=== PATIENT | male | born 1950 | race African-American/Black ===

== ENCOUNTER 2017-11-01 07:30 | Emergency (ER) | payer MEDICARE, OTHER ==
[~2017-11-01] VITALS: Ht 170.2 cm; Wt 76.0 kg
[~2017-11-01 07:30] MED LIST: ASPI81 PO; ATOR80TA41 PO; DOK100TA PO; DORZ1SOL2 EACH EYE; ERGO50000 PO; INDO75CA PO; LATA0.00 EACH EYE; LOSA50TA PO; LUTE1CAP5 PO; METO25 PO; OMEP20TA PO; VITATAB11 PO
[2017-11-01 07:32] VITALS: BP 170/78; PULSE 65; RESP 18; TEMP 97.6; O2SAT 99
[2017-11-01] MEDS ORDERED: ATOR80TA45 PO (07:46)
[2017-11-01] MEDS ORDERED: METO25TA3 PO (07:46)
--- NOTE | 2017-11-01 07:59 | PD ---
HPI Chief Complaint: Numbness/Tingling Time Seen by Provider: 07:53 Travel History International Travel<30 days: No Contact w/Intl Traveler<30days: No Traveled to known affect area: No History of Present Illness HPI 67-year-old male patient with history of sciatica, previous ME, DVT, presents to the ER today because he states he woke up this morning and noticed that his left foot was dropping, he cannot flex it the way he used to and he has some tingling in it. He denies any leg weakness, difficulty talking, or other focal neurological deficits. He denies any chest pains, abdominal pains, headaches, or other symptoms. He denies any injuries. He states that he was fine last night. Modifying Factors: None Associated Signs & Symptoms: Left foot drop Risk Factors: None PFSH Past Medical History Arthritis: Yes (GOUT) Heart Rhythm Problems: No Cardiac Catheterization: Yes (and aortic aneurysm repair) Cardiovascular Problems: Yes High Cholesterol: Yes Congestive Heart Failure: No Coronary Artery Disease: Yes Diabetes: No Diminished Hearing: No Deep Vein Thrombosis: Yes Gout: Yes Hypertension: Yes Myocardial Infarction: Yes Renal Failure: Yes (STATES HIS DR SAID HE HAS KIDNEY DISEASE) Sleep Apnea: Yes (cpap) Past Surgical History Coronary Artery Bypass Graft: No Family History Family Myocardial Infarction: Yes (father in 60-70's of [place]) Social History Alcohol Use: No Tobacco Use: No Substance Use: No (hX USING MARIJUANA-) Allergies-Medications (Allergen,Severity, Reaction): Coded Allergies: Penicillins (Verified Allergy, Severe, hives, 11/01/17) Reported Meds & Prescriptions Reported Meds & Active Scripts Active Reported Atorvastatin (Atorvastatin Calcium) 80 Mg Tab 80 Mg PO HS Metoprolol Tartrate 25 Mg Tab Unknown Dose PO BID Review of Systems Except as stated in HPI: all other systems reviewed are Neg Physical Exam Narrative GENERAL: Well-developed elderly -[place] male patient currently in mild distress. Awake and oriented x3. SKIN: Focused skin assessment warm/dry. HEAD: Atraumatic. Normocephalic. EYES: Pupils equal and round. No scleral icterus. No injection or drainage. ENT: No nasal bleeding or discharge. Mucous membranes pink and moist. NECK: Trachea midline. No JVD. CARDIOVASCULAR: Regular rate and rhythm. No murmur appreciated. RESPIRATORY: No accessory muscle use. Clear to auscultation. Breath sounds equal bilaterally. GASTROINTESTINAL: Abdomen soft, non-tender, nondistended. Hepatic and splenic margins not palpable. MUSCULOSKELETAL: No obvious deformities. No clubbing. No cyanosis. No edema. EXTREMITIES: No clubbing, cyanosis, or edema. No joint tenderness, effusion, or edema noted. No calf tenderness. Neurovascularly intact, good pedal pulses. NEUROLOGICAL: Awake and alert. No obvious cranial nerve deficits. Motor grossly within normal limits, no pronator drift, but there is a notable left foot weakness on flexion, foot drop. Normal speech. PSYCHIATRIC: Appropriate mood and affect; insight and judgment normal. Data Data Last Documented VS Vital Signs Date Time Temp Pulse Resp B/P (MAP) Pulse Ox O2 Delivery O2 Flow Rate FiO2 11/01/17 09:18 97.8 54 17 157/73 (101) 99 Room Air Orders Orders Complete Blood Count With Diff (11/01/17 07:53) Basic Metabolic Panel (Bmp) (11/01/17 07:53) Creatine Kinase (Cpk) (11/01/17 07:53) Ct Brain W/O Iv Contrast(Rout) (11/01/17 07:53) Ct Lumb Spine W/O Contrast (11/01/17 07:53) Mri L Spine W/O Contrast (11/01/17 09:04) Labs Laboratory Tests Test 11/01/17 07:50 White Blood Count 3.5 TH/MM3 Red Blood Count 4.08 MIL/MM3 Hemoglobin 12.3 GM/DL Hematocrit 36.2 % Mean Corpuscular Volume 88.9 FL Mean Corpuscular Hemoglobin 30.3 PG Mean Corpuscular Hemoglobin Concent 34.0 % Red Cell Distribution Width 14.6 % Platelet Count 160 TH/MM3 Mean Platelet Volume 8.5 FL Neutrophils (%) (Auto) 60.7 % Lymphocytes (%) (Auto) 25.0 % Monocytes (%) (Auto) 12.3 % Eosinophils (%) (Auto) 1.6 % Basophils (%) (Auto) 0.4 % Neutrophils # (Auto) 2.1 TH/MM3 Lymphocytes # (Auto) 0.9 TH/MM3 Monocytes # (Auto) 0.4 TH/MM3 Eosinophils # (Auto) 0.1 TH/MM3 Basophils # (Auto) 0.0 TH/MM3 CBC Comment DIFF FINAL Differential Comment Blood Urea Nitrogen 14 MG/DL Creatinine 1.24 MG/DL Random Glucose 114 MG/DL Calcium Level 9.1 MG/DL Sodium Level 139 MEQ/L Potassium Level 3.6 MEQ/L Chloride Level 105 MEQ/L Carbon Dioxide Level 25.2 MEQ/L Anion Gap 9 MEQ/L Estimat Glomerular Filtration Rate 71 ML/MIN Total Creatine Kinase 105 U/L MDM Medical Decision Making Medical Screen Exam Complete: Yes Emergency Medical Condition: Yes Medical Record Reviewed: Yes Interpretation(s) Laboratory Tests Test 11/01/17 07:50 White Blood Count 3.5 TH/MM3 (4.0-11.0) Red Blood Count 4.08 MIL/MM3 (4.50-5.90) Hemoglobin 12.3 GM/DL (13.0-17.0) Hematocrit 36.2 % (39.0-51.0) Monocytes (%) (Auto) 12.3 % (0.0-8.0) Lymphocytes # (Auto) 0.9 TH/MM3 (1.0-4.8) Random Glucose 114 MG/DL (74-106) Estimat Glomerular Filtration Rate 71 ML/MIN (>89) Last 24 hours Impressions Lumbar Spine MRI 11/01/17 0904 Signed Impressions: CONCLUSION: 1. Mild degenerative changes throughout the lumbar spine with degenerative dis c changes most significant at L5-S1 where there is a diffuse disc bulge with di sc material slightly abutting the left S1 nerve root in the lateral recess. The re is mild narrowing of the neural foramina at L5-S1. 2. Remaining levels demonstrate no significant spinal canal stenosis or neural foraminal stenosis. Lumbar Spine CT 11/01/17 2051 Signed Impressions: CONCLUSION: 1. Mild degenerative change throughout the lumbar spine, most significant at L 5-S1 where there is a diffuse disc bulge which may abut the left S1 nerve root. There is also mild to moderate bilateral neural foraminal narrowing at this le aaliyah. 2. Remaining levels demonstrate no canal or neural foraminal stenosis. Head CT 11/01/17 6730 Signed Impressions: CONCLUSION: 1. Stable noncontrast head CT. No acute intracranial abnormality is identified . 2. There is moderate to severe periventricular white matter low-attenuation li lindsey representing chronic small vessel ischemic change. Differential Diagnosis Lumbar radiculopathy versus distal neuropathy versus sciatica versus CVA Narrative Course Patient has no other focal neurological deficits. However, he reports that the foot drop is new as of today, and there is no saddle anesthesia or incontinence. At this point, I have done a CAT scan and it did show some impingement of the L5-S1 nerve root area which could be causing some symptoms. CT the brain did not show any signs of acute intercranial processes. Lab work was fairly unremarkable for any significant metabolic issues. Case was discussed with Dr. Weeks of neurosurgery who would like me to do an MRI for further evaluation of this issue, MRI was done and does show some impingement of the S1 nerve root on exit on the left side, site of patient's symptoms, and the findings were discussed with Dr. Weeks as well and he took a look at the study himself, does not think that there is any immediate surgical need for this issue. He did recommend some steroids and PT and further evaluation with neurology, may need nerve conduction studies, and if necessary follow-up with him in his clinic. Return for any worsening in symptoms as needed. The plan has been discussed with the patient and he states understanding. Diagnosis Primary Impression: Lumbar radiculopathy, acute Referrals: Bismark Weeks MD Med/Other Pt SpecificInfo: Prescription(s) given Scripts Ibuprofen (Ibuprofen) 600 Mg Tab 600 MG PO Q6H Y for Pain/Inflammation, #15 TAB 0 Refills Prov: Sebastien Estrada MD 11/01/17 Methylprednisolone Dosepak (Medrol Dosepak) 4 Mg Dspk 4 MG PO DIRECTED, #1 DSPK 0 Refills Per Pharmacist direction Prov: Sebastien Estrada MD 11/01/17 Disposition: 01 DISCHARGE HOME Condition: Stable Sebastien Estrada MD Nov 01, 2017 07:59
[2017-11-01 08:03] LABS: AUTOMATED NEUTROPHIL # 2.1 TH/MM3 (1.8-7.7); BASOPHIL % 0.4 % (0.0-2.0); EOSINOPHIL # 0.1 TH/MM3 (0-0.4); EOSINOPHIL % 1.6 % (0.0-4.0); HEMATOCRIT 36.2 % (39.0-51.0); HEMOGLOBIN 12.3 GM/DL (13.0-17.0); LYMPHOCYTE # 0.9 TH/MM3 (1.0-4.8); MEAN CELL VOLUME 88.9 FL (80.0-100.0); MEAN CORPUSCULAR HEMOGLOBIN 30.3 PG (27.0-34.0); MEAN PLATELET VOLUME 8.5 FL (7.0-11.0); MONO % 12.3 % (0.0-8.0); MONOCYTE # 0.4 TH/MM3 (0-0.9); NEUT % 60.7 % (16.0-70.0); PLATELET COUNT 160 TH/MM3 (150-450); RED BLOOD COUNT 4.08 MIL/MM3 (4.50-5.90); RED CELL DISTRIBUTION WIDTH 14.6 % (11.6-17.2); WHITE BLOOD COUNT 3.5 TH/MM3 (4.0-11.0)
[2017-11-01 08:25] LABS: BICARBONATE 25.2 MEQ/L (21.0-32.0); CALCIUM 9.1 MG/DL (8.5-10.1); CREATININE 1.24 MG/DL (0.60-1.30)
--- NOTE | 2017-11-01 08:28 | RADRPT ---
EXAM DATE: 11/01/2017 8:22 AM EDT AGE/SEX: 67 years / Male INDICATIONS: General weakness. CLINICAL DATA: This is the patient's initial encounter. Patient reports that signs and symptoms have been present for 1 day and indicates a pain score of 4/10. MEDICAL/SURGICAL HISTORY: Hypertension. Cardiovascular disease. Abdominal aortic aneurysm repair. RADIATION DOSE: 56.35 CTDI (mGy) COMPARISON: [facility] – [place], CT BRAIN W/O CONTRAST, 02/19/2016. . TECHNIQUE: CT of the head without contrast. Using automated exposure control and adjustment of the mA and/or kV according to patient size, radiation dose was kept as low as reasonably achievable to ob tain optimal diagnostic quality images. FINDINGS: Cerebrum: There is moderate generalized cerebral atrophy. Ventricles are normal given the degree of atrophy. There is moderate to severe periventricular white matter low attenuation. There is a cavum septum pellucidum. No midline shift, mass lesion, hemorrhage or acute infarction. No extraaxial flu id collections are seen. Posterior Fossa: The cerebellum and brainstem demonstrate no acute abnormality. The 4th ventricle is midline. The cerebellopontine angle is within normal limits. Extracranial: The visualized sinuses are clear. Skull: The calvaria is intact. No skull fracture. CONCLUSION: 1. Stable noncontrast head CT. No acute intracranial abnormality is identified. 2. There is moderate to severe periventricular white matter low-attenuation likely representing gear changer rafita small vessel ischemic change. Electronically signed by: Eulogio Martin MD 11/01/2017 8:26 AM EDT
--- NOTE | 2017-11-01 08:47 | RADRPT ---
EXAM DATE: 11/01/2017 8:29 AM EDT AGE/SEX: 67 years / Male INDICATIONS: Lower back pain and left foot numbness. CLINICAL DATA: This is the patient's initial encounter. Patient reports that signs and symptoms have been present for 1 day and indicates a pain score of 7/10. MEDICAL/SURGICAL HISTORY: Hypertension. Cardiovascular disease. Abdominal aortic aneurysm repair. RADIATION DOSE: 19.02 CTDI (mGy) COMPARISON: No prior exams available for comparison. TECHNIQUE: Contiguous axial images were acquired with a multirow detector CT scanner without contras t. Multiplanar reconstructions in the sagittal and coronal plane were also performed. Using automate d exposure control and adjustment of the mA and/or kV according to patient size, radiation dose was k ept as low as reasonably achievable to obtain optimal diagnostic quality images. FINDINGS: Vertebrae: No fracture or compression deformity. Alignment: No anterolisthesis or retrolisthesis. T12-L1: No disc herniation, canal stenosis, or neural foraminal stenosis. L1-L2: There is a mild diffuse disc bulge. No spinal canal stenosis or neural foraminal stenosis is identified. There are small endplate osteophytes anteriorly. L2-L3: There is a mild diffuse disc bulge. No spinal canal stenosis or neural foraminal stenosis is present. There are small endplate osteophytes anteriorly. L3-L4: There is a mild diffuse disc bulge. No spinal canal stenosis or neural foraminal stenosis is present. L4-L5: There is a mild diffuse disc bulge. No spinal canal stenosis or neural foraminal stenosis is present. L5-S1: Decreased disc height with endplate degenerative change. There are endplate osteophytes anter iorly. There is a moderate size diffuse disc bulge which slightly abuts the left S1 nerve root in the left lateral recess. No spinal canal stenosis is present. There is mild to moderate bilateral neural foraminal stenosis. Other: The visualized surrounding structures demonstrate no acute abnormality. There is an abdominal aortic aneurysm that has been treated with an endoluminal stent graft. The stent extends into the lef t common iliac artery. There are calcifications within the pancreas. CONCLUSION: 1. Mild degenerative change throughout the lumbar spine, most significant at L5-S1 where there is a diffuse disc bulge which may abut the left S1 nerve root. There is also mild to moderate bilateral ne ural foraminal narrowing at this level. 2. Remaining levels demonstrate no canal or neural foraminal stenosis. Electronically signed by: Eulogio Martin MD 11/01/2017 8:46 AM EDT
[2017-11-01 09:18] VITALS: BP 157/73; PULSE 54; RESP 17; TEMP 97.8; O2SAT 99
--- NOTE | 2017-11-01 10:03 | RADRPT ---
EXAM DATE: 11/01/2017 9:52 AM EDT AGE/SEX: 67 years / Male INDICATIONS: . Left foot drop CLINICAL DATA: This is the patient's initial encounter. Patient reports that signs and symptoms have been present for 1 day and indicates a pain score of 0/10. MEDICAL/SURGICAL HISTORY: Hypertension. Abdominal aortic aneurysm repair. COMPARISON: [facility] – [place], CT LUMBAR SPINE W/O CONTRAST, 11/01/2017. . TECHNIQUE: Multiplanar, multisequence MRI of the lumbar spine was performed without contrast. Patie nt was scanned in a sitting position; neutral, flexion, and extension scans were performed in the sa gittal plane. FINDINGS: Examination mildly degraded by motion artifact. The most caudal-appearing lumbar vertebra is numbered as L5. VERTEBRAE: Bone marrow signal is within normal limits. Vertebral body height is maintained. There is no anterolisthesis or retrolisthesis. CONUS: Normal level and configuration. T12-L1: No disc herniation, canal stenosis, or neural foraminal stenosis. L1-L2: No disc herniation, canal stenosis, or neural foraminal stenosis. There are endplate osteophy lucas anteriorly. L2-L3: No disc herniation, canal stenosis, or neural foraminal stenosis. There are endplate osteophy lucas anteriorly. L3-L4: No disc herniation, canal stenosis, or neural foraminal stenosis. L4-L5: There is disc desiccation with a mild diffuse disc bulge. No spinal canal stenosis or neural foraminal stenosis is present. L5-S1: Decreased disc height with endplate osteophytes anteriorly and a diffuse disc bulge. This mat erial slightly abuts the left S1 nerve root in the left lateral recess. There is mild narrowing of th e neural foramina bilaterally. Mild facet hypertrophy is present. Other: The visualized surrounding structures demonstrate no acute abnormality. There are T2 hyperinte nse lesions within the kidney bilaterally with features characteristic of cysts. Abdominal aortic ane urysm is present has been treated with an endoluminal stent graft. CONCLUSION: 1. Mild degenerative changes throughout the lumbar spine with degenerative disc changes most signifi cant at L5-S1 where there is a diffuse disc bulge with disc material slightly abutting the left S1 ne rve root in the lateral recess. There is mild narrowing of the neural foramina at L5-S1. 2. Remaining levels demonstrate no significant spinal canal stenosis or neural foraminal stenosis. Electronically signed by: Eulogio Martin MD 11/01/2017 10:02 AM EDT
[2017-11-01] MEDS ORDERED: MEDR4PAK PO (10:45)
[2017-11-01] MEDS ORDERED: IBUP-232 PO (10:45)
[2017-11-01 10:46] VITALS: BP 133/76; TEMP 97.8
== END 2017-11-01 10:46 | disposition home or self-care (01) ==
LOC: NEPE 07:30
DX: M51.17 Intervertebral disc disorders with radiculopathy, lumbosacral region (principal); M21.372 Foot drop, left foot; E78.00 Pure hypercholesterolemia, unspecified; I25.10 Atherosclerotic heart disease of native coronary artery without angina pectoris; I12.9 Hypertensive chronic kidney disease with stage 1 through stage 4 chronic kidney disease, or unspecified chronic kidney disease; N18.9 Chronic kidney disease, unspecified; I25.2 Old myocardial infarction; Z86.718 Personal history of other venous thrombosis and embolism; Z86.79 Personal history of other diseases of the circulatory system
CPT/HCPCS: 70450; 72131; 72148; 80048; 82550; 85025; 99284